=== PATIENT | female | born 1990 | race Caucasian/White ===

== ENCOUNTER 2016-10-08 09:01 | Emergency (ER) | payer BC ==
[2010-01-13 04:14] VITALS: BMI 29.8
[2016-10-08 09:36] LABS: BASOPHILS 0.2 % (0.0-2.0); EOSINOPHILS 1.8 % (0-7); HEMATOCRIT 40.3 % (36.0-48.0); HEMOGLOBIN 14.1 g/dL (12-16); IMMATURE GRANULOCYTES 0.2 % (0-5); LYMPHOCYTES 17.8 % (15-50); MCH 32.3 pg (26.0-34.0); MCV 92.4 fL (80.0-100.0); MEAN PLATELET VOLUME 11.9 fL (7.4-10.4); MONOCYTES 6.5 % (2-11); NEUTROPHILS 73.5 % (40-80); RBC 4.36 10x6/uL (4.00-5.40); RDW 12.5 % (11.5-14.5); WBC 9.5 10x3/uL (4.8-10.8)
[2016-10-08 09:46] LABS: PLATELET COUNT 153 10x3/uL (130-400)
[2016-10-08 09:48] LABS: HCG SERUM POSITIVE (NEGATIVE)
[2016-10-08 10:33] LABS: APPEARANCE CLEAR (CLEAR); COLOR YELLOW (YELLOW); SPECIFIC GRAVITY 1.015 (1.005-1.020)
[2016-10-08 10:34] LABS: BILIRUBIN NEGATIVE (NEGATIVE); GLUCOSE NEGATIVE (NEGATIVE); KETONE NEGATIVE (NEGATIVE); LEUKOCYTE ESTERASE NEGATIVE (NEGATIVE); NITRITE NEGATIVE (NEGATIVE); PROTEIN NEGATIVE (NEGATIVE); UROBILINOGEN NORMAL (NORMAL)
== END 2016-10-08 10:55 | disposition home or self-care (01) ==
LOC: D.ER 09:01
PROVIDERS: Emergency Medicine; Nurse Practitioner Acute Care
DX: O02.81 Inappropriate change in quantitative human chorionic gonadotropin (hCG) in early pregnancy (principal); R11.0 Nausea

== ENCOUNTER 2017-05-06 15:00 | Inpatient (IN) | payer BC ==
[2017-05-06] MEDS ORDERED: PRENATAL COMPLE1 TAB PO (15:15)
[2017-05-06 15:57] VITALS: BP 130/61; BMI 30.4
[2017-05-06 16:39] LABS: HEMATOCRIT 35.8 % (36.0-48.0); HEMOGLOBIN 12.7 g/dL (12-16); MCHC 35.5 g/dL (31.0-37.0); MEAN PLATELET VOLUME 12.5 fL (7.4-10.4); RBC 3.73 10x6/uL (4.00-5.40); WBC 9.4 10x3/uL (4.8-10.8)
--- NOTE | 2017-05-07 06:15 | NUR ---
ROUNDS MADE PER Manohar RUDOLPH RN. PT AWAKE, UP IN BED W/ UP IN ARMS. PT BONDING WELL WITH . PT C/O OCCASIONAL PERINEAL PAIN.
--- NOTE | 2017-05-07 07:30 | NUR ---
Upon entering room pt walking back to bed from bathroom, noticeable facial grimacing. Rates pain in zara area and lower abd at 8/10 and is agreeable to pain medication. Also provided with tuck and dermablast spray which is placed in bathroom to be available next time pt voids.
[2017-05-07 08:00] VITALS: BP 100/60
--- NOTE | 2017-05-07 08:04 | NUR ---
Meds given as charted on emar. Assessment completed as charted on flowsheet. Fundus firm at u/u with light bleeding and pt denies clots. Saline lock to left hand patent with no reddness, swelling and pt denies pain at sight, Questions are answered as to when will be removed. Family at bedside and brought in by crib from nursery. Pt denies any needs at this time. side rails up x 2 with phone and call light with in reach.
--- NOTE | 2017-05-07 09:15 | NUR ---
REPORT CALLED TO DR HARRISON OF PT [facility] ON ADMIT AND THAT EPIDURAL CATH LEFT IN PLACE TO DUE THIS. ORDERS RECEIVED TO OBTAIN HEMOGRAM AND NOTIFY HIM WITH RESULTS.
--- NOTE | 2017-05-07 09:50 | NUR ---
AM LAB RESULTS RECEIVED AND DR HARRISON PAGED
--- NOTE | 2017-05-07 10:00 | NUR ---
LAB RESULTS CALLED TO DR HARRISON, PER HE WILL BE DOWN SOON TO REMOVE EPIDURAL CATH. THIS IS REPORTED TO PT.
[2017-05-07 10:03] LABS: HEMATOCRIT 35.9 % (36.0-48.0); HEMOGLOBIN 12.6 g/dL (12-16); MCH 34.1 pg (26.0-34.0); MCHC 35.1 g/dL (31.0-37.0); MCV 97.3 fL (80.0-100.0); MEAN PLATELET VOLUME 12.2 fL (7.4-10.4); PLATELET COUNT 89 10x3/uL (130-400); RBC 3.69 10x6/uL (4.00-5.40); RDW 13.2 % (11.5-14.5)
[2017-05-07 10:38] LABS: PLATELET ESTIMATE DECREASED
--- NOTE | 2017-05-07 10:45 | NUR ---
DR HARRISON TO ROOM AND EPIDURAL CATH REMOVED PER MD, ALSO NOTED THAT BLACK TIP WAS INTACT. PT DENIES ANY NEEDS AT THIS TIME. SIDE RAILS UP X 2 WITH CALL LIGHT IN REACH.
--- NOTE | 2017-05-07 12:59 | OP ---
PATIENT NAME: PADMINI PIERCE MEDICAL RECORD: [id number] :90 LOCATION:[id number] ADMISSION DATE:05/06/17 SURGEON: NADER CRYSTAL MD DATE OF OPERATION: 05/07/2017 Delivery Note Spontaneous vaginal delivery of male infant weighing 6 pounds 15 ounces with epidural anesthesia. Apgars of 9 and 9. First degree labial laceration repaired using 3-0 chromic suture. Spontaneous delivery of intact-appearing placenta. ESTIMATED BLOOD LOSS: 400 cc. COMPLICATIONS OF DELIVERY: None. TRANSINT:[id number] Voice Confirmation ID: [id number] DOCUMENT ID: [id number] NADER CRYSTAL MD at 1259 CC: [id number] DICTATION DATE: 05/07/1719 TROLLEY CAR OPERATOR: 05/07/17 0034 ADM IN [facility] [address] [id number]
--- NOTE | 2017-05-07 13:15 | NUR ---
SALINE LOCK REMOVED WITH CATH INTACT. TOWELS PLACED IN BATHROOM, PT STATES UNDERSTANDING IF ASSISTANCE IS NEEDED FOR SHOWER TO CALL FOR NURSE. DENIES ANY NEEDS AT THIS TIME. BED IN LOW POSITION, SIDE RAILS UP X2 WITH CALL LIGHT IN REACH. IN ROOM BEING HELD BY FAMILY MEMBER.
--- NOTE | 2017-05-07 14:22 | NUR ---
CALLS OUT WITH REQUEST FOR PAIN MED. RATES AT 02/21, MEDS GIVEN CHARTED ON EMAR. ALSO PROVIDED WITH LARGE CUP OF ICE WITH COKE. IN CRIB AT BEDSIDE AND FAMILY MEMBERS PRESENT.
--- NOTE | 2017-05-07 15:00 | NUR ---
PAIN REASSESSMENT, PT STATES SHE IS FEELING BETTER, CHARTED ALSO ON EMAR. DENIES NEEDS AT THIS TIME.
--- NOTE | 2017-05-07 15:50 | NUR ---
Called to room, pt complains of heartburn and ask for something to help. Bicitra given as charted on emar. Pt sitting up in bed visiting with friends/family. Rates pain/cramps at 4/10. Side rails up x 2 with phone and call light in reach.
--- NOTE | 2017-05-07 16:20 | NUR ---
REPORTS THAT HEARTBURN IS BETTER, RATES PAIN AT 5/10 BUT STATES IT IS MORE "SORENESS" IN HER BACK. WARM BLANKET PROVIDED FOR PT TO LAY ON TO PROVIDE COMFORT. SIDE RAILS UP X 2, CALL LIGHT IN REACH. FAMILY AT BEDSIDE AND IN CRIB AT BEDSIDE.
--- NOTE | 2017-05-07 18:45 | NUR ---
PT CALLS OUT WITH REQUEST FOR PAIN MED, RATES PAIN AT 8/10. MEDS GIVEN CHARTED ON EMAR.
[2017-05-07 19:45] VITALS: BP 118/62
--- NOTE | 2017-05-07 19:45 | NUR ---
THIS RN TO BEDSIDE FOR SHIFT ASSESSMENT. PT CURRENTLY LYING IN BED W/ UP IN ARMS. PAIN REASSESSMENT DONE. PT REPORTS PERINEAL PAIN AND BACK PAIN CONTINUE. RATE 4/10. TEACHING PROVIDED IN REGARDS TO AMBULTING MORE THAN IN THE ROOM TO HELP W/BACK DISCOMFORT. SHIFT ASSESSMENT COMPLETED. SEE FLOWSHEET. CONTINUED PM SHIFT POC DISCUSSED. SIG OTHER HAS JUST PROVIDED PT W/FRESH ICE WATER. TRASH AND DINNER TRAY REMOVED FROM ROOM. PT REQUESTING MOTRIN NOW. SEE MAR FOR DOC OF MOTRIN 600MG PO GIVEN. PT DENIES FURTHER NEEDS AT THIS TIME. BED LOW,CALL LIGHT AND PHONE AT PT'S SIDE.
--- NOTE | 2017-05-07 21:29 | NUR ---
ROUNDS MADE. PT SITTING UP IN BED VISITING W/SIG OTHER AND A VISITOR. PT'S PAIN REASSESSED. RATES PAIN 09/21. PT DENIES NEEDS AT PRESENT. DECLINES OFFERS TO BRING HER ANYTHING TO EAT OR DRINK. BED LOW,CALL LIGHT AND PHONE AT PT'S SIDE.
--- NOTE | 2017-05-07 23:45 | NUR ---
ROUNDS MADE FOR PAIN REASSESSMENT. PT LYING TO RT SIDE W/THIS RN'S ENTRY, PT TURNS TO THE DOOR. PAIN REASSESSED. PT REPORTS PAIN IS BETTER. RATES 3/10. DENIES NEEDS AT PRESENT. PT'S MOTHER IN ROOM. INFANT IN CRIB AT GRANDMOTHER'S SIDE.
--- NOTE | 2017-05-08 01:31 | NUR ---
ROUNDS MADE. PT RESTING W/EYES CLOSED IN LOW DOYLE'S. RESP EVEN AND UNLABORED. PT LEFT UNDISTURBED AT THIS TIME.
--- NOTE | 2017-05-08 03:30 | NUR ---
ROUNDS MADE. UPON ENTERING THE ROOM, PT NOTED TO BE SITTING UP IN BED W/HEAD LEANED BACK AND EYES CLOSED. PT APPEARS TO BE SLEEPING. INFANT UP IN PATIENTS ARMS. DOOR MAKES NOISE W/THIS RN'S ENTRY TO THE ROOM CAUSING PT TO LIFT HER HEAD AND LOOK THE DOOR. PT STATES "HE (REFERING TO THE ) DIDN'T WANT TO EAT SO I DIDN'T WANT TO FORCE HIM. OFFER MADE TO RETURN TO NBN. PT AGREES. PT NEEDS AND PAIN ASSESSED. PT DENIES NEED OR NEED FOR PAIN INTERVENTIONS AT THIS TIME. TRANSPORTED TO L&D DESK PER THIS RN. FEED AND RETURNED TO NBN.
--- NOTE | 2017-05-08 06:42 | NUR ---
C/O PAIN TO MID BACK "WHERE MY EPIDURAL WAS". RATES 11/21.
--- NOTE | 2017-05-08 07:20 | NUR ---
RN TO PT BEDSIDE FOR CONT PP CARE. PT SITTING UP IN BED WITH UP IN ARMS. PAIN RATED 4/10 AT THIS TIME AND PT STATES "IT'S IN MY BOTTOM AREA." PT REQUESTS MOTRIN WHEN AVAILABLE. ADV PT WILL RETURN WITH SAME. PT DENIES FURTHER NEEDS AT THIS TIME. WILL RETURN FOR SHIFT ASSESSMENT. BED LOW, WHEELS LOCKED, CL IN REACH, SIDE RAILS UP X2.
[2017-05-08 07:27] LABS: RAPID PLASMA REAGIN Non Reactive (Non Reactive)
[2017-05-08 08:28] VITALS: BP 111/51
--- NOTE | 2017-05-08 08:28 | NUR ---
PT INSPECTOR CONVEYOR LINE LIGHT REQUESTING MOTRIN FOR PAIN RATED 3-4/10 IN LOWER BACK. MOTRIN 600MG GIVEN PO PER CAMILO BRAN NPC RN STUDENT.
--- NOTE | 2017-05-08 08:45 | NUR ---
PT AMBULATING AROUND ROOM. UP TO FOB ARMS IN EN FACE POSITION. PHYSICAL ASSESSMENT DONE SEE SHIFT ASSESSMENT. BOWEL SOUNDS HYPOACTIVE X 4. PT DENIES BM SINCE DELIVERY BUT REPORTS PASSING GAS. FUNDUS FIRM U/1. MODERATE RUBRA LOCHIA. PT REPORTS PASSING TENNIS BALL SIZED CLOT THIS AM X 1 AFTER SLEEPING ALL NIGHT. PT DENIES HAVING TO CHANGE HER PAD MORE OFTEN THAN Q 2 HRS. 1+ PITTING EDEMA NOTED TO FEET BILATERALLY. PEDAL PULSES EQUAL AND PALPABLE. PT DENIES FURTHER NEEDS AT THIS TIME.
[2017-05-08] MEDS ORDERED: IBUPROFEN600 MG PO (10:26)
== END 2017-05-08 11:30 | disposition home or self-care (01) | DRG 775 ==
LOC: D.LDO 15:00 → D.LD 15:20
PROVIDERS: ADMIT Obstetrics & Gynecology
PROC: 10E0XZZ Delivery of Products of Conception, External Approach (ICD-10-PCS; principal; 2017-05-06)
PROC: 0HQ9XZZ Repair Perineum Skin, External Approach (ICD-10-PCS; 2017-05-06)
DX: O42.913 Preterm premature rupture of membranes, unspecified as to length of time between rupture and onset of labor, third trimester (principal); Z3A.36 36 weeks gestation of pregnancy; Z37.0 Single live birth

== ENCOUNTER 2017-05-30 16:23 | Emergency (ER) | payer BC ==
[~2017-05-30 16:23] MED LIST: IBUPROFEN600 MG PO; PRENATAL COMPLE1 TAB PO
== END 2017-05-30 18:49 | disposition home or self-care (01) ==
LOC: D.ER 16:23
DX: G43.909 Migraine, unspecified, not intractable, without status migrainosus (principal); R11.0 Nausea

== ENCOUNTER 2019-01-30 17:49 | Emergency (ER) | payer BC ==
[~2019-01-30] VITALS: Ht 162.6 cm; Wt 65.9 kg
[2019-01-30 18:08] VITALS: Ht 162.6 cm; Wt 65.9 kg
[2019-01-30] MEDS ORDERED: DEPOPROVERA (18:11)
[2019-01-30] MEDS ORDERED: CYCLOBENZAPRINE10 MG PO (20:00)
[2019-01-30] MEDS ORDERED: ACETAMINOPHEN500 M1 PO (20:00)
[2019-01-30] MEDS ORDERED: IBUPROFEN800 MG PO (20:00)
[2019-01-30 20:44] VITALS: BP 133/86
== END 2019-01-30 20:44 | disposition home or self-care (01) ==
LOC: D.ER 17:49
DX: S63.92XA Sprain of unspecified part of left wrist and hand, initial encounter (principal); X58.XXXA Exposure to other specified factors, initial encounter; Y93.89 Activity, other specified; Y92.89 Other specified places as the place of occurrence of the external cause